=== PATIENT | female | born 1980 | race African-American/Black ===

== ENCOUNTER 2019-02-08 10:09 | Outpatient (CLI) | payer OTHER ==
--- NOTE | 2019-02-08 11:49 | RAD ---
LEFT KNEE 3 VIEWS: Date: 02/08/19 HISTORY: Injury, left knee pain. FINDINGS/IMPRESSION: No acute fracture or dislocation is seen. POS: [facility]
== END 2019-02-08 10:10 | disposition home or self-care (01) ==
LOC: SCSRAD 10:09
PROVIDERS: ATTEND Nurse Practitioner Family
DX: S89.92XD Unspecified injury of left lower leg, subsequent encounter (principal)